=== PATIENT | female | born 1980 | race Caucasian/White ===

== ENCOUNTER 2023-04-30 08:21 | Emergency (ER) | payer BC, SELFPAY ==
[2023-04-30 08:25] VITALS: BP 131/83; PULSE 93; RESP 14; TEMP 36.1; O2SAT 97; BMI 35.0
[2023-04-30 08:49] LABS: Appearance Urine Clear (Clear); Bilirubin Urine Negative (Negative); Blood Urine Negative (Negative); Color Urine Amber (Yellow); Glucose Urine Negative (Negative); Ketones Urine Negative (Negative); Leukocyte Esterase Urine Negative (Negative); Nitrite Urine Negative (Negative); Protein Urine Negative (Negative); pH Urine 6.5 (5.0-8.5)
--- NOTE | 2023-04-30 08:54 | CRLHL7_ITS ---
For Patients: As a result of the 21st Century Cures Act, medical imaging exams and procedure reports are released immediately into your electronic medical record. You may view this report before your referring provider. If you have questions, please contact your health care provider. INDICATION: Left upper quadrant pain. Gastric bypass 2 months ago. TECHNIQUE: CT of the abdomen and pelvis with 99 cc Isovue 370 IV contrast. Coronal and sagittal reconstructions. COMPARISON: None. FINDINGS: The liver is enlarged measuring 19.5 cm in length. Subcentimeter hypodensity in posterior right hepatic dome is too small to characterize. There is subtle liver surface nodularity along the inferior right hepatic lobe as well as recanalization of the umbilical vein. Mild upper abdominal and paraesophageal varices. Findings suggest underlying hepatic cirrhosis with portal hypertension. The spleen is enlarged measuring 17.2 cm in length. The gallbladder, pancreas, and adrenal glands are negative. No biliary dilation. Hepatic and portal veins are patent. Symmetric enhancement of the kidneys. No hydronephrosis or ureteral dilation. No obstructing urinary calculi identified. The bladder is normal in appearance. Hysterectomy. Small follicles in both ovaries. Postoperative changes of Krupa-en-Y gastric bypass without obvious complication. No small bowel dilation. Large amount of stool throughout the colon. Negative appendix. Trace free fluid in the pelvis. No intraperitoneal free air. Mildly prominent gastrohepatic, lola hepatis, and periaortic lymph nodes are likely reactive. There is subtle increased attenuation of the left upper abdominal mesentery with mildly prominent lymph nodes. This may represent mesenteric panniculitis. Small fat containing umbilical hernia. Degenerative changes of the spine. The lung bases are clear. IMPRESSION: 1. Postoperative changes of Krupa-en-Y gastric bypass without obvious complication. 2. Findings suggestive of cirrhosis and portal hypertension with hepatosplenomegaly, recanalized umbilical vein, and mild upper abdominal/paraesophageal varices. Trace free fluid in the pelvis may be physiologic or related to ascites. 3. 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 4. No other acute findings in the abdomen or pelvis. Please note that all CT scans at this facility use dose modulation, iterative reconstruction, and/or weight-based dosing when appropriate to reduce radiation dose to as low as reasonably achievable. Dictated by Evi Ordonez MD @ 04/30/2023 11:30:55 AM (Electronically Signed)
--- NOTE | 2023-04-30 08:56 | ED_ITS ---
HPI - Abdominal Pain General Chief Complaint: Abdominal Pain Stated Complaint: L side abdomen pain Time Seen by Provider: 04/30/23 08:48 History of Present Illness HPI narrative: This 42-year-old female comes in reporting left upper quadrant abdominal pain that began last night. She was able to sleep okay through the night but had worsening sharp pains that come and go this morning. She states that she had a gastric bypass done a couple months ago. She does not report any nausea, vomiting, diarrhea, or fevers. Related Data Home Medications Medication Instructions Recorded Confirmed atorvastatin 40 mg tablet 40 mg PO DAILY 04/30/23 04/30/23 bupropion HCl 150 mg 24 hr tablet, 150 mg PO DAILY 04/30/23 04/30/23 extended release cetirizine 10 mg tablet (24Hour 10 mg PO DAILY PRN 04/30/23 04/30/23 Allergy) Previous Rx's Medication Instructions Recorded doxycycline hyclate 100 mg capsule 100 mg PO BID 7 days #14 caps 04/30/23 hydrocodone 5 mg-acetaminophen 325 1 tab PO Q4-6H PRN pain #15 tabs 04/30/23 mg tablet Allergies Allergy/AdvReac Type Severity Reaction Status Date / Time Sulfa (Sulfonamide Allergy Unknown Hives Verified 04/30/23 08:27 Antibiotics) sulfamethoxazole Allergy Unknown Hives Verified 04/30/23 08:27 [From Bactrim] trimethoprim [From Bactrim] Allergy Unknown Hives Verified 04/30/23 08:27 Review of Systems Status of ROS Reports: 10 or more systems reviewed and unremarkable except as noted in History and below Narrative Constitutional: No fevers, no weight gain or loss. Eyes: No discharge. No vision changes. HENT: No congestion, no sore throat, no ear pain. Cardiovascular: No chest pain, no palpitations. Respiratory: No shortness of breath, no wheezes, no cough. Gastrointestinal: No vomiting, no diarrhea. Left upper quadrant abdominal pain as described above. Genitourinary: No dysuria, no hematuria. Musculoskeletal: Normal range of motion. Skin: No rashes, no pruritis. Neurological: No dizziness, weakness, sensory change, speech change. Endo/Heme/Allergies: No bruising or bleeding. No polydipsia. Pysch: no suicidality, no anxiety, no insomnia. All other systems reviewed and are negative. Exam Narrative: Exam Narrative: Constitutional: Well-developed, well-nourished, no acute distress. HEENT: Normocephalic, atraumatic. Neck: Normal range of motion. Nontender. Supple. Heart: Regular. No murmurs. Normal rate. Intact distal pulses. Lungs: Clear to auscultation. No chest discomfort. No wheezes, rhonchi, or rales. Abdomen: Normal bowel sounds. No rebound tenderness. Tenderness more localized in the left upper quadrant. Genitalia: Deferred. Back: No midline tenderness. Normal range of motion. Extremities: Normal range of motion. No injury. Skin: Intact. No rash. Warm. No erythema or pallor. Neurologic: No altered sensation. No weakness. Alert and oriented. Psychiatric: No suicidality. No anxiety or depression. No insomnia. Nursing notes and vitals signs are reviewed. Const: Vital Signs, click to edit/add: Vital Signs - 24 hr 04/30/23 08:25 Temperature 97.0 F L Pulse Rate [Pulse Oximeter] 93 Respiratory Rate 14 Blood Pressure [Ri ght Upper Arm] 131/83 Pulse Oximetry 97 Oxygen Delivery Me thod Room Air Course Vital Signs Vital signs: Initial Vital Signs Temperature 97.0 F L 04/30/23 08:25 Temperature Source Temporal Artery Scan 04/30/23 08:25 Pulse Rate 93 04/30/23 08:25 Pulse Rhythm Regular 04/30/23 08:25 Respiratory Rate 14 04/30/23 08:25 Blood Pressure 131/83 04/30/23 08:25 Blood Pressure Mean 99 04/30/23 08:25 Blood Pressure Position Sitting 04/30/23 08:25 Pulse Oximetry 97 04/30/23 08:25 Oxygen Delivery Method Room Air 04/30/23 08:25 Vital Signs Temperature 97.0 F L 04/30/23 08:25 Pulse Rate 93 04/30/23 08:25 Respiratory Rate 14 04/30/23 08:25 Blood Pressure 131/83 04/30/23 08:25 Pulse Oximetry 97 04/30/23 08:25 Oxygen Delivery Method Room Air 04/30/23 08:25 Temperature 97.0 F L 04/30/23 08:25 Pulse Rate 93 04/30/23 08:25 Respiratory Rate 14 04/30/23 08:25 Blood Pressure 131/83 04/30/23 08:25 Pulse Oximetry 97 04/30/23 08:25 Oxygen Delivery Method Room Air 04/30/23 08:25 MDM - Abdominal Pain MDM Narrative Medical decision making narrative: This patient comes in with left upper quadrant abdominal pain as described above. She did have a gastric bypass about 3 months ago and states that she has lost about 60 lb which is more than what is recommended. She does report prior history of liver cirrhosis and mildly elevated liver enzymes. Today her lab results do return with some elevation of her liver enzymes. She has normal appearing anatomy and no complications with the recent surgery. She does have some mildly reactive lymph nodes in the left upper quadrant which may suggest a mesenteric panniculitis. Her white count returns at around 11,000. She does not have fever and has normal vital signs. This patient is okay to return home. She did received prescription for doxycycline given these findings on CT imaging and her borderline white blood cell count. She also received a prescription for some tablets of [place]. Lab Data Labs: Lab Results 04/30/23 04/30/23 Range/Units 08:38 09:00 WBC 11.13 H (4.50-11.00) K/uL RBC 4.87 (4.00-5.20) m/uL Hgb 13.5 (12.0-16.0) gm/dL Hct 42.2 (33.0-51.0) % MCV 87 (80-100) fL MCH 28 (26-34) pg MCHC 32 (32-36) gm/dL RDW Coeff of [place] 14.0 (11.5-15.5) % Plt Count 187 (140-440) K/uL Neut % (Auto) 86.6 H (42.0-72.0) % Lymph % (Auto) 7.0 L (20-44) % [place] % (Auto) 5.3 (0.0-11.0) % Eos % (Auto) 0.8 (0.0-7.0) % Baso % (Auto) 0.1 (0.0-3.0) % Neut # (Auto) 9.60 H (1.7-7.0) K/uL Lymph # (Auto) 0.80 L (0.90-2.90) K/uL [place] # (Auto) 0.60 (0.00-0.90) K/UL Eos # (Auto) 0.10 (0.00-0.50) K/uL Baso # (Auto) 0.00 (0.00-0.30) K/uL Abs Immat Gran (auto) 0.00 (0.00-0.30) K/uL Imm/Tot Granulo (auto) 0.2 % Sodium 138 (135-149) mmol/L Potassium 3.9 (3.6-5.1) mmol/L Chloride 102 (96-114) mmol/L Carbon Dioxide 31 (20-32) mmol/L Anion Gap 5 L (7-15) mEq/L BUN 11 (5-24) mg/dL Creatinine 0.7 (0.5-1.5) mg/dL Estimated Creat Clear 92.25 Estimated GFR 112 ml/min Glucose 141 H (60-115) mg/dL Calcium 9.4 (8.4-10.6) mg/dL Total Bilirubin 2.6 H (0.1-1.5) mg/dL Direct Bilirubin 0.1 (0.0-0.5) mg/dL AST 120 H (12-35) U/L ALT 96 H (4-35) U/L Alkaline Phosphatase 204 H (40-150) U/L Total Protein 7.3 (6.0-8.3) g/dL Albumin 3.9 (3.3-5.0) g/dL Lipase 54 (23-300) U/L Urine Color Robyn A (Yellow) Urine Appearance Clear (Clear) Urine pH 6.5 (5.0-8.5) Ur Specific [place] 1.010 (1.000-1.030) Urine Protein Negative (Negative) Urine Glucose (UA) Negative (Negative) Urine Ketones Negative (Negative) Urine Blood Negative (Negative) Urine Nitrite Negative (Negative) Urine Bilirubin Negative (Negative) Urine Urobilinogen 1.0 (0.2-1.0) Ur Leukocyte Esterase Negative (Negative) Urine RBC 0-2 (0-2) Urine WBC 0-2 (0-5) Ur Squamous Epith Cells Moderate A (None-Few) Amorphous Sediment Few A (None) Urine Bacteria Moderate A (None) Imaging Data CT scan - abdomen: Radiologist's impression: 1. Postoperative changes of Krupa-en-Y gastric bypass without obvious complication. 2. Findings suggestive of cirrhosis and portal hypertension with hepatosplenomegaly, recanalized umbilical vein, and mild upper abdominal/paraesophageal varices. Trace free fluid in the pelvis may be physiologic or related to ascites. 3. 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 4. No other acute findings in the abdomen or pelvis. Discharge Plan Discharge Clinical Impression: Abdominal pain Patient Disposition: Home, Self-Care Condition: Stable Additional Instructions: Take medication as prescribed. Continue current plans. Follow up with MD return if worsening symptoms happen. Prescriptions: New doxycycline hyclate 100 mg capsule 100 mg PO BID 7 Days Qty: 14 0RF hydrocodone-acetaminophen 5-325 mg tablet 1 tab PO Q4-6H PRN (Reason: pain) Qty: 15 0RF No Action cetirizine [24Hour Allergy] 10 mg tablet 10 mg PO DAILY PRN bupropion HCl 150 mg tablet extended release 24 hr 150 mg PO DAILY atorvastatin 40 mg tablet 40 mg PO DAILY Follow Up/Referrals: Provider,Not a Local [Primary Care Provider] - Stand Alone Forms: New [employer] Info Instructions
[2023-04-30 09:03] LABS: RBC Urine 0-2 (0-2); Squamous Epithelial Cell Urine Moderate (None-Few); WBC Urine 0-2 (0-5)
[2023-04-30 09:04] LABS: Amorphous Sediment Urine Few; Bacteria Urine Moderate
[2023-04-30 09:10] LABS: Basophils Percent Auto 0.1 % (0.0-3.0); Eosinophils Percent Auto 0.8 % (0.0-7.0); Hematocrit 42.2 % (33.0-51.0); Hemoglobin* 13.5 gm/dL (12.0-16.0); Immature Granulocytes Pct Auto 0.2 %; Mean Corpuscular HGB Conc 32 gm/dL (32-36); Mean Corpuscular Hemoglobin 28 pg (26-34); Mean Corpuscular Volume 87 fL (80-100); Monocytes Percent Auto 5.3 % (0.0-11.0); Neutrophils Percent Auto 86.6 % (42.0-72.0); Platelet Count* 187 K/uL (140-440); Red Blood Count 4.87 m/uL (4.00-5.20); White Blood Count* 11.13 K/uL (4.50-11.00)
[2023-04-30 09:15] LABS: Slide Review Reflex No
[2023-04-30 09:28] LABS: Albumin* 3.9 g/dL (3.3-5.0)
[2023-04-30 09:29] LABS: Chloride* 102 mmol/L (96-114); Sodium* 138 mmol/L (135-149)
[2023-04-30 09:30] LABS: Potassium* 3.9 mmol/L (3.6-5.1)
[2023-04-30 09:31] LABS: Aspartate Amino Transferase* 120 U/L (12-35); Bilirubin Direct* 0.1 mg/dL (0.0-0.5); Bilirubin Total* 2.6 mg/dL (0.1-1.5); Total Protein* 7.3 g/dL (6.0-8.3)
[2023-04-30 09:32] LABS: Alanine Aminotransferase* 96 U/L (4-35); Alkaline Phosphatase* 204 U/L (40-150); Anion Gap 5 mEq/L (7-15); Carbon Dioxide* 31 mmol/L (20-32); Creatinine* 0.7 mg/dL (0.5-1.5); Est. Creatinine Clearance* 92.25; Estimated Glomerular Filt Rate 112 ml/min; Lipase* 54 U/L (23-300)
[2023-04-30 09:33] LABS: Blood Urea Nitrogen* 11 mg/dL (5-24); Calcium* 9.4 mg/dL (8.4-10.6); Glucose* 141 mg/dL (60-115)
[2023-04-30 12:03] VITALS: BP 130/81; PULSE 89; RESP 17; O2SAT 98
== END 2023-04-30 12:05 | disposition home or self-care (01) ==
PROVIDERS: Emergency Provider Emergency Medicine Emergency Medical Services
DX: R10.12 Left upper quadrant pain (principal)
CPT/HCPCS: 36415; 74177; 80048; 80076; 81001; 83690; 85025; 87086; 99283; 99284; Q9967